=== PATIENT | female | born 1985 | race Caucasian/White ===

== ENCOUNTER 2017-03-05 11:52 | Emergency (ER) | payer OTHER, SELFPAY ==
[2017-03-05 13:09] LABS: #Basophils 0.2 thou/uL (0.0-0.2); #Eosinphils 0.1 thou/uL (0.0-0.7); #Monocytes 1.4 thou/uL (0.11-0.59); #Neutrophils 9.2 thou/uL (1.40-6.50); %Basophils 1.4 % (0.0-1.0); %Eosinophils 0.4 % (0.0-10.0); %Lymphocytes 15.9 % (21.0-51.0); %Monocytes 10.7 % (0.0-10.0); %Neutrophils 71.7 % (42.0-75.0); Mean Corpuscular Hemoglobin 31.5 pg (27.0-31.0); Mean Corpuscular Volume 95.4 fl (81.0-99.0); Mean Platelet Volume 6.2 fL (7.4-10.4); Platelet Count 415 thou/uL (130-400); RBC Distribution Width 11.7 % (11.5-14.5); Red Blood Cell (RBC) Count 4.45 mill/uL (4.20-5.40); White Blood Cell (WBC) Count 12.8 thou/uL (4.8-10.8)
[2017-03-05 13:14] LABS: ALT (SGPT) 20 U/L (8-55); AST (SGOT) 27 U/L (5-34); Albumin 4.7 g/dL (3.5-5.0); Alkaline Phosphatase 63 U/L (40-150); Anion Gap 20 mmol/L (10-20); BUN (Urea Nitrogen) 15 mg/dL (7.0-18.7); Bilirubin, Total 1.5 mg/dL (0.2-1.2); Calc. Creatinine Clearance 0 mL/min (70-130); Calcium 9.6 mg/dL (7.8-10.44); Carbon Dioxide 20 mmol/L (22-29); Chloride 101 mmol/L (98-107); Estimated GFR-MDRD 79; Globulin 3.4 g/dL (2.4-3.5); Glucose 77 mg/dL (70-105); Potassium 3.5 mmol/L (3.5-5.1); Protein, Total 8.1 g/dL (6.0-8.3); Sodium 137 mmol/L (136-145)
[2017-03-05 14:27] LABS: THC/Cannabinoid Screen Detected (NotDetected)
[2017-03-05 14:28] LABS: Amphetamine Detected (NotDetected); Barbiturates Screen Not Detected (NotDetected); Benzodiazepine Screen Detected (NotDetected); Cocaine Metabolite Screen Not Detected (NotDetected); Medtox Control Line Valid? VALID (VALID); Methadone Not Detected (NotDetected); Methamphetamine Detected (NotDetected); Opiate Screen Not Detected (NotDetected); Oxycodone Screen Not Detected (NotDetected); Phencyclidine (PCP) Not Detected (NotDetected); Tricyclic Screen Not Detected (NotDetected)
[2017-03-05 14:29] LABS: Clarity Clear (Clear); Specific Gravity, Urine 1.025 (1.005-1.030); pH, Urine 5.5 (5.0-9.0)
[2017-03-05 14:30] LABS: Glucose, Urine (Dipstick) Negative (Negative); Leukocyte Negative (Negative); Nitrite Negative (Negative); Protein, Urine (Dipstick) 100 mg/dL (Neg-Trace)
[2017-03-05 14:31] LABS: Bilirubin Moderate (Negative); Blood, Urine Moderate (Negative); Icto Negative (Negative); Urobilinogen 0.2 mg/dL (0.2-1.0)
[2017-03-05 14:37] LABS: RBC/HPF 21-50 HPF (0-3)
[2017-03-05 14:38] LABS: Bacteria/HPF None Seen HPF (None Seen); Other Microscopic Description 4+ MUCUS
== END 2017-03-05 15:17 | disposition home or self-care (01) ==
LOC: MADERS 11:52
DX: R11.2 Nausea with vomiting, unspecified (principal); R19.7 Diarrhea, unspecified; F31.9 Bipolar disorder, unspecified; F41.9 Anxiety disorder, unspecified; F17.210 Nicotine dependence, cigarettes, uncomplicated
CPT/HCPCS: 36415; 80053; 80306; 81003; 81015; 85025; 86140; 99283; A4353

== ENCOUNTER 2019-03-01 13:18 | Emergency (ER) | payer OTHER, SELFPAY ==
[~2019-03-01 13:18] MED LIST: Sodium Chloride 0.9% 1,000 ML BAG ONE
[2019-03-01 14:22] LABS: #Basophils 0.1 thou/uL (0.0-0.2); #Lymphocytes 1.3 thou/uL (1.20-3.40); #Monocytes 0.9 thou/uL (0.11-0.59); #Neutrophils 11.4 thou/uL (1.40-6.50); %Basophils 0.4 % (0.0-1.0); %Eosinophils 0.2 % (0.0-10.0); %Lymphocytes 9.5 % (21.0-51.0); %Monocytes 6.8 % (0.0-10.0); %Neutrophils 83.2 % (42.0-75.0); Hemoglobin 12.3 g/dL (12.0-16.0); Mean Corpuscular HGB CONC 32.4 g/dL (32.0-36.0); Mean Corpuscular Hemoglobin 31.2 pg (27.0-31.0); Mean Corpuscular Volume 96.4 fL (78.0-98.0); Mean Platelet Volume 4.7 fL (7.4-10.4); Platelet Count 453 thou/uL (130-400); RBC Distribution Width 12.5 % (11.5-14.5); Red Blood Cell (RBC) Count 3.94 mill/uL (4.20-5.40); White Blood Cell (WBC) Count 13.7 thou/uL (4.8-10.8)
[2019-03-01 14:29] LABS: ALT (SGPT) 20 U/L (8-55); AST (SGOT) 24 U/L (5-34); Acetaminophen Less than 6.0 mcg/mL (10.0-30.0); Albumin 4.3 g/dL (3.5-5.0); Alcohol Less than 10 mg/dL (Less than 10); Alkaline Phosphatase 77 U/L (40-150); Anion Gap 15 mmol/L (10-20); BUN (Urea Nitrogen) 12 mg/dL (7.0-18.7); Bilirubin, Total 0.8 mg/dL (0.2-1.2); Calc. Creatinine Clearance 0 mL/min (70-130); Carbon Dioxide 21 mmol/L (22-29); Chloride 110 mmol/L (98-107); Estimated GFR-MDRD 80; Globulin 3.1 g/dL (2.4-3.5); Glucose 94 mg/dL (70-105); Potassium 4.1 mmol/L (3.5-5.1); Protein, Total 7.4 g/dL (6.0-8.3); Salicylate Less than 8.0 mg/dL (15.0-30.0); Sodium 142 mmol/L (136-145)
[2019-03-01 16:42] LABS: BHCG - Serum Negative (NEGATIVE); Pregs Control Background? CLEAR/WHITE (CLR/WHITE); Pregs Control Bar Appear? YES (CONTROL BAR)
== END 2019-03-01 17:16 ==
LOC: MADERS 13:18
DX: R45.851 Suicidal ideations (principal); R00.0 Tachycardia, unspecified; F19.10 Other psychoactive substance abuse, uncomplicated; F41.9 Anxiety disorder, unspecified; F17.210 Nicotine dependence, cigarettes, uncomplicated; Z79.899 Other long term (current) drug therapy
CPT/HCPCS: 36415; 80053; 80307; 84703; 85025; 93005; 96360; 96361; A4353; J7050

== ENCOUNTER 2020-03-22 14:49 | Emergency (ER) | payer OTHER ==
[~2020-03-22 14:49] MED LIST changes: +Iopamidol 370 76% 100 ML VIAL ONE
[2020-03-22] MEDS ORDERED: Morphine 4 MG/ML VIAL ONE (15:48)
[2020-03-22] MEDS ORDERED: Ondansetron PF 4 MG/2 ML Vial ONE (15:48)
[2020-03-22 15:56] LABS: #Basophils 0.2 thou/uL (0.0-0.2); #Eosinphils 0.1 thou/uL (0.0-0.7); #Lymphocytes 2.5 thou/uL (1.20-3.40); #Monocytes 1.7 thou/uL (0.11-0.59); #Neutrophils 14.9 thou/uL (1.40-6.50); %Eosinophils 0.4 % (0.0-10.0); %Lymphocytes 12.8 % (21.0-51.0); %Monocytes 8.8 % (0.0-10.0); Hemoglobin 13.9 g/dL (12.0-16.0); Mean Corpuscular HGB CONC 32.3 g/dL (32.0-36.0); Mean Corpuscular Hemoglobin 29.8 pg (27.0-31.0); Mean Corpuscular Volume 92.1 fL (78.0-98.0); Mean Platelet Volume 5.7 fL (7.4-10.4); Platelet Count 515 thou/uL (130-400); Red Blood Cell (RBC) Count 4.65 mill/uL (4.20-5.40); White Blood Cell (WBC) Count 19.4 thou/uL (4.8-10.8)
[2020-03-22 16:12] LABS: ALT (SGPT) 28 U/L (8-55); AST (SGOT) 30 U/L (5-34); Albumin 3.9 g/dL (3.5-5.0); Alkaline Phosphatase 110 U/L (40-110); Anion Gap 17 mmol/L (10-20); BUN (Urea Nitrogen) 9 mg/dL (7.0-18.7); Bilirubin, Total 0.3 mg/dL (0.2-1.2); Calc. Creatinine Clearance 0 mL/min (70-130); Carbon Dioxide 22 mmol/L (22-29); Chloride 103 mmol/L (98-107); Estimated GFR-MDRD 60; Globulin 2.9 g/dL (2.4-3.5); Glucose 121 mg/dL (70-105); Potassium 4.6 mmol/L (3.5-5.1); Protein, Total 6.8 g/dL (6.0-8.3); Sodium 137 mmol/L (136-145)
[2020-03-22 16:14] LABS: Acetaminophen Less than 6.0 mcg/mL (10.0-30.0); Alcohol Less than 10 mg/dL (Less than 10); Lipase 19 U/L (8-78); Salicylate Less than 8.0 mg/dL (15.0-30.0)
[2020-03-22 16:37] LABS: Bilirubin Negative (Negative); Blood, Urine Large (Negative); Glucose, Urine (Dipstick) Negative (Negative); Ketone, Urine Negative (Negative); Leukocyte Negative (Negative); Nitrite Negative (Negative); Protein, Urine (Dipstick) Trace mg/dL (Neg-Trace); Urobilinogen 0.2 mg/dL (Less than 2); pH, Urine 7.5 (5.0-9.0)
[2020-03-22 16:39] LABS: Bacteria/HPF Rare-Few HPF (None Seen); Clarity Cloudy (Clear); Mucous/LPF 2+ LPF (<2+); RBC/HPF Greater than 50 HPF (0-3); WBC/HPF 0-3 HPF (0-3)
[2020-03-22 16:40] LABS: Amphetamine Not Detected (NotDetected); Cocaine Metabolite Screen Not Detected (NotDetected); Methamphetamine Not Detected (NotDetected); Opiate Screen Detected (NotDetected); Phencyclidine (PCP) Not Detected (NotDetected); THC/Cannabinoid Screen Not Detected (NotDetected); Tricyclic Screen Detected (NotDetected)
[2020-03-22 16:41] LABS: Barbiturates Screen Not Detected (NotDetected); Benzodiazepine Screen Not Detected (NotDetected); Medtox Control Line Valid? VALID (VALID); Methadone Not Detected (NotDetected); Oxycodone Screen Not Detected (NotDetected)
--- NOTE | 2020-03-22 16:52 | CT ---
CT Abdomen Pelvis W Con History: Abdominal pain Comparison: CT abdomen and pelvis 2016 Findings: Lung bases are clear. No pericardial effusion. Moderate inflammatory stranding along the right kidney with findings of a small 2 x 3 mm stone distal right ureter at the ureterovesicular junction. Asymmetric decreased enhancement of the right kidney relative to the left. Moderate right hydroureteronephrosis. Punctate 2 x 2 mm calculus interpolar right kidney. Punctate 2 x 2 mm calculus superior pole left kid tamela. The liver, gallbladder, spleen, pancreas, adrenal glands are unremarkable. No acute osseous abnormali ty. No left-sided hydroureteronephrosis. No dilated loops of large or small bowel. The appendix is visualized and is normal. Impression: Partially obstructing 2 x 3 mm calculus distal right ureter at the ureterovesicular junct ion with moderate right hydroureteronephrosis, perinephric stranding, and asymmetric decreased parenchymal enhancement.
[2020-03-22] MEDS ORDERED: Ketorolac Tromethamine 30 MG/ML VIAL ONE (17:26)
== END 2020-03-22 18:10 | disposition home or self-care (01) ==
LOC: MADERS 14:49
DX: N13.2 Hydronephrosis with renal and ureteral calculous obstruction (principal); F41.9 Anxiety disorder, unspecified; F32.9 Major depressive disorder, single episode, unspecified; F98.8 Other specified behavioral and emotional disorders with onset usually occurring in childhood and adolescence; F17.210 Nicotine dependence, cigarettes, uncomplicated; Z79.899 Other long term (current) drug therapy
CPT/HCPCS: 74177; 80053; 80306; 80307; 81003; 81015; 83690; 85025; 86140; 96361; 96374; 96375; J1885; J2270; J2405; J7050; Q9967

== ENCOUNTER 2020-04-01 20:25 | Emergency (ER) | payer OTHER ==
[2020-04-01 21:39] LABS: Bilirubin Negative (Negative); Blood, Urine Trace (Negative); Clarity Slightly Cloudy (Clear); Glucose, Urine (Dipstick) Negative (Negative); Ketone, Urine Negative (Negative); Leukocyte Trace (Negative); Nitrite Negative (Negative); Protein, Urine (Dipstick) Negative (Neg-Trace); Specific Gravity, Urine 1.025 (1.005-1.030); Urobilinogen 0.2 mg/dL (Less than 2); pH, Urine 5.5 (5.0-9.0)
[2020-04-01 21:42] LABS: Bacteria/HPF 2+ HPF (None Seen); Mucous/LPF 2+ LPF (<2+); RBC/HPF 0-3 HPF (0-3)
[2020-04-01] MEDS ORDERED: Morphine 4 MG/ML VIAL ONE (22:06)
[2020-04-01] MEDS ORDERED: Promethazine HCl 25 MG/ML VIAL ONE (22:07)
[2020-04-01] MEDS ORDERED: Sodium Chloride 0.9% 1,000 ML ONE (22:07)
== END 2020-04-01 23:09 | disposition short-term general hospital (02) ==
LOC: MADERS 20:25
DX: T80.89XA Other complications following infusion, transfusion and therapeutic injection, initial encounter (principal); G89.29 Other chronic pain; M54.5 Low back pain; R00.0 Tachycardia, unspecified; F98.8 Other specified behavioral and emotional disorders with onset usually occurring in childhood and adolescence; F41.9 Anxiety disorder, unspecified; F31.9 Bipolar disorder, unspecified; F17.210 Nicotine dependence, cigarettes, uncomplicated; Z79.899 Other long term (current) drug therapy
CPT/HCPCS: 81003; 81015; 86140; 96365; 96375; J2270; J2550; J7050

== ENCOUNTER 2020-04-11 08:03 | Emergency (ER) | payer OTHER ==
[2020-04-11] MEDS ORDERED: Bacitracin 1 PK ONE (08:55)
[2020-04-11] MEDS ORDERED: predniSONE 20 MG TAB ONE (08:55)
[2020-04-11] MEDS ORDERED: Ketamine 50 MG/ML (10ML VIAL) ONE (08:55)
== END 2020-04-11 09:05 | disposition home or self-care (01) ==
LOC: MADERS 08:03
DX: G89.29 Other chronic pain (principal); M54.5 Low back pain; F31.9 Bipolar disorder, unspecified; F41.9 Anxiety disorder, unspecified; F17.210 Nicotine dependence, cigarettes, uncomplicated; Z79.899 Other long term (current) drug therapy
CPT/HCPCS: 96372; 99283; J7512

== ENCOUNTER 2020-05-04 01:14 | Emergency (ER) | payer OTHER ==
[2020-05-04] MEDS ORDERED: Sodium Chloride 0.9% 1,000 ML ONE ×2 (01:41→03:25)
[2020-05-04] MEDS ORDERED: Ketorolac Tromethamine 30 MG/ML VIAL ONE ×2 (01:41→04:45)
[2020-05-04] MEDS ORDERED: Ondansetron PF 4 MG/2 ML Vial ONE ×2 (01:41→01:42)
[2020-05-04 02:03] LABS: #Basophils 0.2 thou/uL (0.0-0.2); #Eosinphils 0.2 thou/uL (0.0-0.7); #Lymphocytes 4.1 thou/uL (1.20-3.40); #Monocytes 1.7 thou/uL (0.11-0.59); #Neutrophils 6.3 thou/uL (1.40-6.50); %Basophils 1.9 % (0.0-1.0); %Eosinophils 1.2 % (0.0-10.0); %Lymphocytes 32.9 % (21.0-51.0); %Monocytes 13.5 % (0.0-10.0); %Neutrophils 50.5 % (42.0-75.0); Hemoglobin 13.7 g/dL (12.0-16.0); Mean Corpuscular Hemoglobin 30.6 pg (27.0-31.0); Mean Corpuscular Volume 92.7 fL (78.0-98.0); Mean Platelet Volume 5.5 fL (7.4-10.4); Platelet Count 548 thou/uL (130-400); RBC Distribution Width 13.1 % (11.5-14.5); Red Blood Cell (RBC) Count 4.46 mill/uL (4.20-5.40); White Blood Cell (WBC) Count 12.5 thou/uL (4.8-10.8)
[2020-05-04 02:14] LABS: ALT (SGPT) 74 U/L (8-55); AST (SGOT) 63 U/L (5-34); Alkaline Phosphatase 88 U/L (40-110); Anion Gap 19 mmol/L (10-20); BUN (Urea Nitrogen) 5 mg/dL (7.0-18.7); Bilirubin, Total 0.4 mg/dL (0.2-1.2); Calc. Creatinine Clearance 0 mL/min (70-130); Calcium 9.1 mg/dL (7.8-10.44); Carbon Dioxide 19 mmol/L (22-29); Chloride 104 mmol/L (98-107); Globulin 2.9 g/dL (2.4-3.5); Glucose 145 mg/dL (70-105); Potassium 3.6 mmol/L (3.5-5.1); Protein, Total 6.9 g/dL (6.0-8.3); Sodium 138 mmol/L (136-145)
[2020-05-04 03:21] LABS: Bilirubin Negative (Negative); Blood, Urine Large (Negative); Clarity Slightly Cloudy (Clear); Glucose, Urine (Dipstick) Negative (Negative); Ketone, Urine Negative (Negative); Leukocyte Negative (Negative); Nitrite Negative (Negative); Protein, Urine (Dipstick) Trace mg/dL (Neg-Trace); Urobilinogen 0.2 mg/dL (Less than 2); pH, Urine 5.5 (5.0-9.0)
[2020-05-04 03:22] LABS: Specific Gravity, Urine 1.025 (1.002-1.036)
[2020-05-04 03:23] LABS: Bacteria/HPF 1+ HPF (None Seen); RBC/HPF 21-50 HPF (0-3); WBC/HPF 0-3 HPF (0-3)
[2020-05-04] MEDS ORDERED: cefTRIAXone\\ROCEPHIN 1 GM VIAL ONE (03:38)
--- NOTE | 2020-05-04 10:12 | CT ---
PRELIMINARY REPORT/[facility]/EMERGENCY AFTER HOURS PROCEDURE: EXAM: CT Abdomen and Pelvis Without Intravenous Contrast CLINICAL HISTORY: LEFT FLANK PAIN TECHNIQUE: Axial computed tomography images of the abdomen and pelvis without intravenous contrast. CONTRAST: None. COMPARISON: None provided. FINDINGS: LUNG BASES: No basilar airspace consolidation or pleural effusion. LIVER: Unremarkable. GALLBLADDER AND BILE DUCTS: Unremarkable. No calcified stone. No ductal dilation. PANCREAS: Unremarkable. SPLEEN: Unremarkable. ADRENAL GLANDS: Unremarkable. KIDNEYS, URETERS, AND BLADDER: The left kidney is enlarged and edematous with an obstructive 2 mm ureterolith at the left ureteroves icular junction with mild proximal hydroureteronephrosis. Punctate nonobstructive right nephrolithia sis. No right ureterolithiasis. The bladder is decompressed, limiting evaluation. No definitive bl adder calculi. STOMACH AND BOWEL: No obstruction. No wall thickening. No CT evidence of colitis or acute diverticulitis. APPENDIX: No CT evidence for appendicitis. PERITONEUM: No free fluid. No free air. LYMPH NODES: No lymphadenopathy. REPRODUCTIVE: Unremarkable as visualized. VASCULATURE: No aortic aneurysm. ABDOMINAL WALL AND SOFT TISSUES: Unremarkable. BONES: No fracture or suspicious osseous abnormality. IMPRESSION: Obstructive 2 mm ureterolith at the left ureterovesicular junction. Additionally, punctate nonobstru ctive right nephrolithiasis is present. ELECTRONICALLY SIGNED BY: Michelet Camilo MD May 04, 2020 4:12:19 AM CDT This report is intended for review by the ordering physician only, in accordance of law. If you recei ve this report in error, please call [facility] at [phone]. FINAL REPORT CT ABDOMEN AND PELVIS WITHOUT IV CONTRAST: INDICATION: Left flank pain. FINDINGS/IMPRESSION: Mild left hydronephrosis. Obstructing calculus distal left ureter near the UVJ. I am in agreement with the preliminary report issued by [facility]. POS: [facility]W
== END 2020-05-04 04:57 | disposition home or self-care (01) ==
LOC: MADERS 01:14
DX: N13.2 Hydronephrosis with renal and ureteral calculous obstruction (principal); F17.210 Nicotine dependence, cigarettes, uncomplicated
CPT/HCPCS: 74176; 80053; 81003; 81015; 85025; 96361; 96374; 96375; 96376; J0696; J1885; J2405; J7050